=== PATIENT | female | born 1970 | race American Indian/Alaskan Native ===

== ENCOUNTER 2017-05-06 13:54 | Outpatient (CLI) | payer OTHER ==
--- NOTE | 2017-05-06 14:28 | XRay Report ---
RIGHT SHOULDER: Pain Routine views demonstrate normal bony and soft tissue structures with normal joint alignment of the shoulder. IMPRESSION: Normal study.
== END 2017-05-06 13:55 | disposition home or self-care (01) ==
LOC: SPVIMAG 13:54
PROVIDERS: ATTEND Orthopaedic Surgery
DX: M25.511 Pain in right shoulder (principal)